=== PATIENT | male | born 1990 | race Caucasian/White ===

== ENCOUNTER 2023-05-01 16:36 | Emergency (ER) | payer BC | END 2023-05-01 17:31 | disposition home or self-care (01) | LOC: BURERS 16:36 | DX: S69.81XA Other specified injuries of right wrist, hand and finger(s), initial encounter (principal); M25.241 Flail joint, right hand; I10 Essential (primary) hypertension; W22.8XXA Striking against or struck by other objects, initial encounter; Z79.899 Other long term (current) drug therapy ==